=== PATIENT | female | born 1995 | race Hispanic/Latino ===

== ENCOUNTER 2023-09-20 11:48 | Emergency (ER) | payer SELFPAY ==
[2023-09-20 11:49] VITALS: BP 117/72; PULSE 95; RESP 17; TEMP 35.7; O2SAT 97; BMI 29.9
--- NOTE | 2023-09-20 13:32 | EDS_ITS ---
HPI HPI - Female History of Present Illness Chief Complaint: Narrative Narrative: 28-year-old female presenting with . She states her last menstrual period was August 13. She is having some abdominal cramping and some lower back pain. She states her urine has been more frequent. She feels emotional because she is and she is tearful. She does not have lateralizing abdominal pain. No vaginal bleeding or discharge. [place] and has been here for couple of years but she has no healthcare insurance nor does she have any physicians that she seen locally. She had 1 previous daughter who is now 4 years old. She does not have any diarrhea or constipation. PFSH PFSH Allergy/AdvReac Type Severity Reaction Status Date / Time No Known Allergies Allergy Verified 09/20/23 11:52 Social History Smoking Status: Never smoker ROS ROS ED Constitutional Constitutional ED: Denies chills, fever(s) or sweats Eyes Eyes: Denies blurry vision or change in vision ENT ENT ED: Denies ear pain or sore throat Cardiovascular Cardiovascular: Denies chest pain, palpitations or racing heartbeat Respiratory/Chest Respiratory/Chest: Denies cough, dyspnea or sputum Gastrointestinal Gastrointestinal: Reports abdominal pain and nausea; Denies constipation, diarrhea or vomiting Genitourinary Genitourinary ED: Denies dysuria, hematuria or urinary frequency Musculoskeletal Musculoskeletal: Denies arthralgias, myalgias or neck pain Integumentary Denies abscess, Abrasions or rash Neurologic Neurologic: Denies headache(s), paresthesias or weakness Psychiatric Psychiatric: Denies anxiety, depression, suicidal ideation or suicidal thoughts Endocrine Endocrinology: Denies polydipsia or polyuria EXAM Physical Exam Const Vital Signs: 09/20/23 11:49 09/20/23 13:48 Temperature 96.2 F L Temperature Source Temporal Pulse Rate 95 87 Respiratory Rate 17 16 Blood Pressure 117/72 117/64 Blood Pressure Mean 87 81 Pulse Ox 97 99 Oxygen Delivery Method Room Air Room Air Positive well nourished General Appearance ED: NAD HEENT Reports moist mucous membranes trauma Eyes PERRL and EOMs intact bilaterally Resp normal respiratory effort and clear to auscultation bilaterally GI normal to inspection, nondistended, normoactive bowel sounds, soft to palpation and non-distended Extremity normal to inspection Neuro oriented x3 and CN's II-XII intact bilaterally Sensorium / Orientation: alert Motor Exam: strength 5/5 throughout Psych mental status grossly normal Skin no rashes or lesions noted MDM MDM MDM Narrative Medical decision making narrative: Patient presenting with some mild crampy abdominal pain. She tested positive f or as outpatient. Last menstrual period August 13. Differential includes for semester , ectopic . hCG positive here today. Urinalysis negative for infection. hCG quant and obstetrics ultrasound will be obtained. Urinalysis negative for infection. hCG quant is 3410. Discussed the case with Dr. Huang. We will obtain an obstetrics ultrasound and Dr. Huang make arrangements for follow-up in the next 2 days. Patient will be signed out to incoming ED physician for monitoring until ultrasound can be obtained. Impression: 1. First trimester 2. Abdominal pain Lab Data Labs: Laboratory Results - last 24 hr 09/20/23 09/20/23 13:28 14:35 HCG, Quant 3410 H Urine Color Yellow Urine Clarity Clear Urine pH 6.0 Ur Specific [place] 1.020 Urine Protein Negative Urine Glucose (UA) Normal Urine Ketones 5 H Urine Occult Blood 10 H Urine Nitrite Negative Urine Bilirubin Negative Urine Urobilinogen Normal Ur Leukocyte Esterase Negative Urine RBC 0 SEEN Urine WBC 0 SEEN Ur Squamous Epith Cells 0-5 SEEN Urine Bacteria 0 SEEN Urine Mucus 0 SEEN Urine Test Positive H Discharge Plan Triage Chief Complaint: ED Provider: Oseas Palacios Dx/Rx/DC Orders Primary Care Provider: Care Physician,No Primary Referrals: NOT,DEFINED [Non-Staff] -
[2023-09-20 13:33] LABS: Bacteria 0 SEEN /hpf (None Seen); Mucous, Urine 0 SEEN /hpf (<or=2+); Red Blood Cells-Urine 0 SEEN /hpf (0-5); White Blood Cells 0 SEEN /hpf (0-5)
[2023-09-20 13:36] LABS: Color, Urine Yellow (Yellow); Glucose, Dipstick Normal (Normal); Ketone-Dipstick 5 mg/dl (Negative); Leukocyte Esterase-Dipstick Negative /ul (Negative); Nitrite-Dipstick Negative (Negative); Occult Blood-Urine 10 /ul (Negative); Protein-Dipstick Negative (Negative); Urine Bilirubin Dipstick Negative (Negative); Urine Clarity Clear (Clear); Urine Urobilinogen Normal (Normal)
[2023-09-20 13:46] LABS: Internal QC Validated? YES +Cl - CLEAR BKGD; Pregnancy, Urine Positive Negative; Squamous Epithelial Cells - UA 0-5 SEEN /hpf (5-10)
[2023-09-20 13:48] VITALS: BP 117/64; PULSE 87; RESP 16; O2SAT 99
--- NOTE | 2023-09-20 13:58 | US_ITS ---
EXAM: US , TRANSVAGINAL CLINICAL INDICATION: abdominal pain TECHNIQUE: Real-time transvaginal obstetrical ultrasound of the maternal pelvis and a first trimester with image documentation. Transvaginal imaging was used for better evaluation of the fetus and adnexa. COMPARISON: No relevant prior studies available. FINDINGS: GESTATION: There is a gestational sac with a mean sac diameter of 9 mm age 5 weeks 5 days. There is a 2 mm yolk sac present. There is no pole identified. PLACENTA/AMNIOTIC FLUID: There is a small hypoechoic area adjacent to the gestational sac that measures 9 x 4 x 7 mm which may represent a subchorionic hemorrhage. UTERUS/CERVIX: Uterus measures 8.9 x 4.4 x 5.1 cm. No myometrial mass. OVARIES: The right ovary measures 2.5 x 2.6 x 3.3 cm. There is a 1.9 x 2.3 x 1.5 cm anechoic structure in the ovary which may cysts. The left ovary measures 3.1 x 1.3 x 1.9 cm. No mass. FREE FLUID: There is a small amount of free fluid in the cul-de-sac. US/Transvaginal w/Preg US IMPRESSION: Gestational sac age 5 weeks 5 days. There is a yolk sac present but no evidence of a pole. There is a small hypoechoic area adjacent to the gestational sac which may represent a subchorionic hemorrhage. Electronically Signed: Gregory Lockhart MD at 16:34 EDT ,
[2023-09-20 15:19] LABS: hCG Titer Quant., Serum 3410 mIU/mL (1-3)
[2023-09-20 15:30] VITALS: BP 118/75; PULSE 89; RESP 16; O2SAT 99
[2023-09-20 17:01] VITALS: BP 120/74; PULSE 81; RESP 16; O2SAT 99
== END 2023-09-20 17:02 | disposition home or self-care (01) ==
PROVIDERS: Student in an Organized Health Care Education/Training Program; Emergency Provider Emergency Medicine; Visit Provider Emergency Medicine
DX: O26.891 Other specified pregnancy related conditions, first trimester (principal); R10.9 Unspecified abdominal pain; Z3A.00 Weeks of gestation of pregnancy not specified
CPT/HCPCS: 76817; 81001; 81025; 84702; 99282; A4216

== ENCOUNTER 2023-11-03 21:41 | Emergency (ER) | payer SELFPAY ==
[2023-11-03 21:41] VITALS: BP 108/80; PULSE 100; RESP 16; TEMP 36.6; O2SAT 99; BMI 32.2
[2023-11-03 21:58] LABS: Mucous, Urine 0 SEEN /hpf (<or=2+)
[2023-11-03 22:08] LABS: Color, Urine Yellow (Yellow); Glucose, Dipstick Normal (Normal); Ketone-Dipstick Negative (Negative); Leukocyte Esterase-Dipstick 25 /ul (Negative); Nitrite-Dipstick Negative (Negative); Occult Blood-Urine 250 /ul (Negative); Protein-Dipstick Negative (Negative); Urine Bilirubin Dipstick Negative (Negative); Urine Clarity Clear (Clear); Urine Urobilinogen Normal (Normal)
[2023-11-03 22:23] LABS: Bacteria 1+ /hpf (None Seen); Red Blood Cells-Urine 0-5 SEEN /hpf (0-5); Squamous Epithelial Cells - UA 0-5 SEEN /hpf (5-10); White Blood Cells 0-5 SEEN /hpf (0-5)
--- NOTE | 2023-11-03 22:47 | US_ITS ---
ACR Level 3 findings have been noted. An addendum which confirms receipt of the report will follow. EXAM: US , TRANSVAGINAL CLINICAL INDICATION: vaginal bleeding TECHNIQUE: Real-time transvaginal obstetrical ultrasound of the maternal pelvis and a first trimester with image documentation. Transvaginal imaging was used for better evaluation of the fetus and adnexa. COMPARISON: 09/20/2023 FINDINGS: GESTATION: Nonviable intrauterine gestation. [place]-rump length: 2.3 cm (8 weeks, 6 days). This is in contrast to age by dates of 11 weeks, 4 days. No cardiac activity is identified. PLACENTA/AMNIOTIC FLUID: Cannot be adequately evaluated due to the early gestational age. UTERUS/CERVIX: The cervix is closed. No myometrial mass. The uterus measures 11.0 x 6.7 x 5.9 cm. OVARIES: Likely right ovarian corpus luteum cyst for which no follow-up is indicated. No mass. The right ovary measures 2.9 x 2.6 x 1.9 cm. The left ovary measures 2.9 x 2.0 x 1.2 cm. FREE FLUID: No free fluid. US/Transvaginal w/Preg US IMPRESSION: Nonviable IUP. The gestation measures 8 weeks, 6 days in contrast to age by dates of 11 weeks, 4 days. No cardiac activity is identified. Follow-up as clinically indicated. Electronically Signed: Josh Lema DO at 23:45 EDT ,
[2023-11-03 23:41] VITALS: BP 110/49; PULSE 89; RESP 16; O2SAT 99
[2023-11-04 00:53] LABS: hCG Titer Quant., Serum 222 mIU/mL (1-3)
[2023-11-04 01:00] VITALS: BP 104/46; PULSE 87; RESP 15; O2SAT 100
--- NOTE | 2023-11-04 02:43 | ED.VIS.FEGU ---
HPI HPI - Female History of Present Illness Chief Complaint: Vag Bld, Preg Informant: patient Narrative Narrative: Patient is a female who states she is approximately 8 weeks . She reports that over the last 1 to 2 days she has noticed intermittent vaginal bleeding and back pain. She states has been no discharge she denies any dysuria or concern for STD. However because of the symptoms she is concerned there could be something wrong with her and therefore comes in for evaluation [facility] Medical History unable to obtain Allergy/AdvReac Type Severity Reaction Status Date / Time No Known Allergies Allergy Verified 09/20/23 11:52 Social History Smoking Status: Never smoker ROS ROS ED Constitutional Constitutional ED: Denies chills or fever(s) Eyes Eyes: Denies change in vision or diplopia ENT ENT ED: Denies sore throat Cardiovascular Cardiovascular: Denies chest pain, palpitations or racing heartbeat Respiratory/Chest Respiratory/Chest: Denies cough or dyspnea Gastrointestinal Gastrointestinal: Denies abdominal pain, diarrhea, nausea or vomiting Genitourinary Genitourinary ED: Reports other Details: Positive vaginal bleeding ; Denies dysuria Musculoskeletal Musculoskeletal: Reports other Details: Positive back pain ; Denies myalgias Integumentary Denies rash Neurologic Neurologic: Denies headache(s) Hematologic/Lymphatic Hematologic/Lymphatic: Denies easy bleeding or easy bruising EXAM Physical Exam Const Vital Signs: 11/03/23 23:41 11/04/23 01:00 11/04/23 02:52 Temperature 98.1 F Pulse Rate 89 87 78 Respiratory Rate 16 15 16 Blood Pressure 110/49 L 104/46 L 105/62 Blood Pressure Mean 69 65 76 Pulse Ox 99 100 97 Oxygen Delivery Method Room Air Room Air Positive well nourished and well developed General Appearance ED: well developed; Negative for pallor HEENT HEENT Narrative: Normocephalic atraumatic Eyes PERRL and EOMs intact bilaterally General Eye ED: Negative for pale conjunctiva or scleral icterus Neck supple Resp normal respiratory effort and clear to auscultation bilaterally Cardio regular rate and regular rhythm Rate: other Other Details: Heart is regular rate and rhythm without murmurs rubs or gallops. Radial and carotid pulses are equal and symmetric GI normal to inspection, nondistended, normoactive bowel sounds, soft to palpation, non-tender, non-distended and no masses GI Narrative: No voluntary guarding or rigidity or pulsatile mass or fluid wave Auscultation: normoactive bowel sounds Palpation: soft Narrative: Patient deferred Back/Spine no CVA tenderness Extremity normal to inspection and full ROM Extremity Narrative: No asymmetric edema no pitting edema negative Homans' sign bilaterally Neuro oriented x3, CN's II-XII intact bilaterally and no sensory deficits noted Sensorium / Orientation: alert Motor Exam: strength 5/5 throughout Psych mental status grossly normal Skin no rashes or lesions noted and no wounds General Skin Exam: Negative for jaundice or pallor MDM MDM MDM Narrative Medical decision making narrative: Patient arrived to the ER with stable vitals and a soft nonsurgical abdomen. With her report of vaginal bleeding there is concern for subchorionic hemorrhage versus threatened miscarriage versus spontaneous and therefore a transvaginal ultrasound was obtained. Transvaginal ultrasound indicated no heartbeat and states this is consistent with a spontaneous miscarriage. Patient's labs show that her hCG value has decreased from 3400 in September down to approximately 220 today which correlates with this finding. Her blood type is O+ and therefore there is no need for RhoGAM injection. At this time vitals are stable she does not have a surgical abdomen and there is no need for emergent OB consultation. However the patient does need to follow-up with them as she may require D&C. As vitals are stable and there is no obvious signs of acute blood loss anemia I do not feel there is need for further workup and patient is otherwise safe for discharge History & Record Review Discussion w/independent historian: Patient Lab Data Attestation: I reviewed the patient's lab results. Labs: Laboratory Results - last 24 hr 11/04/23 00:17 HCG, Quant 222 H Blood Type O POSITIVE Radiography Diagnostic Testing: Clinical Impression(s) from Imaging Studies Obstetrics Ultrasound 11/03/23 22:47 IMPRESSION: Nonviable IUP. The gestation measures 8 weeks, 6 days in contrast to age by dates of 11 weeks, 4 days. No cardiac activity is identified. Follow-up as clinically indicated. Electronically Signed: Josh Lema DO at 23:45 EDT , ADDENDUM: 11/04/23 0006 IMPRESSION: Nonviable IUP. The gestation measures 8 weeks, 6 days in contrast to age by dates of 11 weeks, 4 days. No cardiac activity is identified. Follow-up as clinically indicated. N.B. : Addis Hernandez RN, confirmed on 11/03/2023 23:59:32 (ET) that the healthcare facility has received the radiology report. Electronically Signed: Josh Lema DO at 23:45 EDT , Discharge Plan Triage Chief Complaint: Vag Bld, Preg ED Provider: Perry Mendoza Dx/Rx/DC Orders Clinical Impression: Spontaneous miscarriage Instructions: ED Miscarriage Spontaneous Primary Care Provider: Care Physician,No Primary Referrals: Guillermina Espinoza DO [Med Staff - Active Staff] - Care Physician,No Primary [Primary Care Provider] - Activity Restrictions/Additional Instructions: Your blood work and ultrasound show you are having a spontaneous miscarriage. You need to follow-up with [facility] for repeat evaluation as you may need a D&C. If you develop increased pain severe bleeding or temperature over 100.4 or have any further concerns please return the hospital for repeat evaluation Print Language: Lithuanian Disposition Disposition: Home, Self Care Discharge Date/Time: 11/04/23 02:53
[2023-11-04 02:52] VITALS: BP 105/62; PULSE 78; RESP 16; TEMP 36.7; O2SAT 97
== END 2023-11-04 02:53 | disposition home or self-care (01) ==
PROVIDERS: Emergency Provider Emergency Medicine; Visit Provider Emergency Medicine
DX: O03.9 Complete or unspecified spontaneous abortion without complication (principal)
CPT/HCPCS: 76817; 81001; 84702; 86900; 86901; 99283; A4216

== ENCOUNTER 2023-11-05 04:53 | Day surgery (SDC) | payer SELFPAY ==
[2023-11-05] VITALS (13 sets, daily range): BP systolic 102–137; BP diastolic 48–92; PULSE 61–96; RESP 14–17; TEMP 36.1–36.7; O2SAT 95–99; BMI 28.9
--- NOTE | 2023-11-05 | POC_PTH ---
PATIENT: MELODIE CARLSON [place] [facility] [id number] AGE/SX: 28/F ROOM: RE11/05/[address]: Dr. Guillermina Espinoza DO : 1995 BED: DIS: 11/05/2023 SPEC #: [id number] RECD: 11/05/23 12:13 STATUS: DELLA MAYE #: [id number] EUNICE: 11/05/23 00:[address]: Guillermina Espinoza DEPT: SURGICAL PATHOLOGY RECD BY: Michael Vann ENTERED: 11/05/23 12:13 SP TYPE: PROD CONC OTHR DR: No Primary Care Phys Tissues: Product of conception, NOS Procedures: Surgery Specimen Level IV HEADER OPERATION: D&C, suction PRE-OP DIAGNOSIS: Spontaneous misscarriage TISSUE SUBMITTED: Products of conception MICROSCOPIC DIAGNOSIS Products of conception, suction dilatation and curettage: [place], gestational endometrium, and immature chorionic villi (products of conception), clinically spontaneous miscarriage. SJ: 11/08/2023 MICROSCOPIC DESCRIPTION Slides are reviewed. GROSS DESCRIPTION Received in fixative is one container labeled with the patient's name and designated Products of conception. The specimen consists of multiple irregular fragments of red-wild soft tissue measuring in aggregate 6.0 x 3.5 x 0.2cm. parts are not grossly recognized. The specimen is submitted in its entirety in three cassettes. AM/ 11/05/2023 TC:5 CPT:62836
[2023-11-05 05:43] LABS: Bacteria 0 SEEN /hpf (None Seen); Mucous, Urine 0 SEEN /hpf (<or=2+); Squamous Epithelial Cells - UA 0 SEEN /hpf (5-10); White Blood Cells 0 SEEN /hpf (0-5)
[2023-11-05 05:51] LABS: Color, Urine Yellow (Yellow); Glucose, Dipstick Normal (Normal); Ketone-Dipstick Negative (Negative); Leukocyte Esterase-Dipstick Negative /ul (Negative); Nitrite-Dipstick Negative (Negative); Occult Blood-Urine 250 /ul (Negative); Protein-Dipstick Negative (Negative); Urine Bilirubin Dipstick Negative (Negative); Urine Clarity Clear (Clear); Urine Urobilinogen Normal (Normal)
[2023-11-05 06:01] LABS: Red Blood Cells-Urine 10-25 SEEN /hpf (0-5)
[2023-11-05 06:14] LABS: Absolute Lymphocyte Count 3.18 X10^3/uL (0.83-4.51); Absolute Neutrophil Count 5.7 X10^3/uL (2.0-7.7); Basophil# 0.04 X10^3/uL; Basophil% 0.4 % (0-1); Eosinophil# 0.22 X10^3/uL; Eosinophils% 2.2 % (0-5); Hematocrit 36.6 % (37-47); Hemoglobin 12.1 g/dL (12.0-15.0); Lymphocyte # 3.18 X10^3/ul (0.83-4.51); Lymphocyte % 32.1 % (19-41); Mean Corp Hgb Conc 33.1 g/dL (32-36); Mean Corpuscular Hgb 32.3 pg (27.0-32.0); Mean Corpuscular Volume 97.6 fL (81-99); Mean Platelet Vol. 10.1 fl (6.2-12.0); Monocyte% 7.1 % (0-10); NRBC Flagged by Analyzer 0 % (0-5); Neutrophil # 5.72 X10^3/uL (2.7-7.7); Neutrophil % 57.7 % (47-70); Platelet Count 261 K/mm3 (150-450); RBC Distribution Width CV 12.1 % (11.6-14.6); RBC Distribution Width SD 43.6 fl (35.1-43.9); Red Blood Count 3.75 M/mm3 (4.2-5.4); White Blood Count 9.9 K/mm3 (4.4-11.0)
[2023-11-05] MEDS: Ondansetron 4 MG/2 ML Vial IV (06:14)
[2023-11-05] MEDS: 0.9% Normal Saline (1000mL) 1,000 ML 999 ML IV (06:14)
[2023-11-05] MEDS: Morphine 4 MG/ML Syringe IV (06:14)
[2023-11-05 06:27] LABS: Anion Gap 9 (5-15); BUN 11 mg/dL (7-18); BUN/Creat Ratio 18.9 RATIO (10-20); Calcium,Total 8.8 mg/dL (8.5-10.1); Chloride 107 mmol/L (98-107); Creatinine, Serum 0.58 mg/dL (0.55-1.02); EST Glomerular Filtration Rate 130 mL/min (>60); Est Glom Filt Rate - Afr Amer 157 mL/min (>60); Estimated Creatinine Clearance 137.91 ml/min; Glucose 127 mg/dL (74-106); Potassium 3.6 mmol/L (3.5-5.1); Sodium Level 139 mmol/L (136-145)
[2023-11-05 06:28] LABS: International Normalized Ratio 1.1; Prothrombin Time (Protime)PT. 13.9 SECONDS (11.7-14.9)
[2023-11-05 06:29] LABS: Partial Thromboplast Time 28.2 Seconds (24.1-36.2)
[2023-11-05 06:41] LABS: Lactic Acid 1.8 mmol/L (0.4-1.9)
--- NOTE | 2023-11-05 07:13 | EDS_ITS ---
HPI History of Present Illness Chief Complaint: Complaint Informant: patient Narrative Narrative: Patient is a 28-year-old female who is a G3, P1. She was seen roughly 24 hours ago secondary to vaginal bleeding and pain and ultrasound and lab work confirms she was having a spontaneous . Patient does state that with her first child she had a similar event and needed surgery. She states that there is no issues with the second child. She states that after leaving the ER she contacted [facility] and was scheduled for an appointment later today. However she developed increasing abdominal pain and increased vaginal bleeding and secondary to this comes to the hospital for evaluation. Patient denies any history of bleeding disorder or blood thinner use PFSH PFSH Home Medications ?Medication ?Instructions ?Recorded ?Last Taken ?Type vit no.95-ferrous 1 tab PO DAILY 11/05/23 Unknown History fumarate 28 mg-folic acid 800 mcg tablet () Allergy/AdvReac Type Severity Reaction Status Date / Time No Known Allergies Allergy Verified 09/20/23 11:52 Social History Smoking Status: Never smoker ROS ROS ED Constitutional Constitutional ED: Denies chills or fever(s) Eyes Eyes: Denies blurry vision or change in vision ENT ENT ED: Denies sore throat Cardiovascular Cardiovascular: Denies chest pain, palpitations or racing heartbeat Respiratory/Chest Respiratory/Chest: Denies cough or dyspnea Gastrointestinal Gastrointestinal: Reports abdominal pain; Denies diarrhea, nausea or vomiting Genitourinary Genitourinary ED: Reports other Details: Positive vaginal bleeding ; Denies dysuria Musculoskeletal Musculoskeletal: Denies back pain or myalgias Integumentary Denies rash Neurologic Neurologic: Denies headache(s) or weakness Hematologic/Lymphatic Hematologic/Lymphatic: Denies easy bleeding or easy bruising EXAM Physical Exam Const Vital Signs: 11/05/23 04:54 11/05/23 04:59 11/05/23 05:59 Temperature 97.1 F L 97.1 F L 98.1 F Temperature Source Temporal Temporal Temporal Pulse Rate 96 96 82 Respiratory Rate 17 17 17 Blood Pressure 119/48 L 119/48 L 137/92 H Blood Pressure Mean 71 71 107 Blood Pressure Source Pulse Ox 99 99 99 Oxygen Delivery Method Room Air Room Air Room Air 11/05/23 07:06 11/05/23 07:16 Temperature 97.7 F L Temperature Source Temporal Pulse Rate 71 61 Respiratory Rate 14 14 Blood Pressure 117/60 121/58 H Blood Pressure Mean 79 79 Blood Pressure Source Monitor Pulse Ox 97 97 Oxygen Delivery Method Room Air Room Air Positive well nourished, well developed and obese General Appearance ED: well developed; Negative for pallor Nutritional Appearance: obese HEENT HEENT Narrative: Normocephalic atraumatic Eyes PERRL and EOMs intact bilaterally General Eye ED: Negative for pale conjunctiva or scleral icterus Neck supple Resp normal respiratory effort and clear to auscultation bilaterally Resp Narrative: No nasal flaring retractions tachypnea or accessory muscle use Cardio regular rate and regular rhythm Rate: other Other Details: Heart is regular rate and rhythm without murmurs rubs or gallops Radial and carotid pulses are equal and symmetric GI non-distended and no masses GI Narrative: Abdomen is soft and nondistended with normal active bowel sounds. Patient has pain with palpation of the lower abdomen diffusely without voluntary guarding or rigidity Auscultation: normoactive bowel sounds Palpation: soft Narrative: There is mild ooze of blood from the vaginal os and speculum exam shows bright red blood that fills the vaginal os upon insertion of the speculum Back/Spine no CVA tenderness Extremity normal to inspection Neuro oriented x3, CN's II-XII intact bilaterally and no sensory deficits noted Sensorium / Orientation: alert Motor Exam: strength 5/5 throughout Psych mental status grossly normal Skin no rashes or lesions noted, no wounds and skin turgor normal General Skin Exam: Negative for jaundice or pallor MDM MDM MDM Narrative Medical decision making narrative: Patient arrived to the ER with stable vitals but reported increased bleeding abdominal pain and had a known spontaneous just roughly 24 hours ago. There is concern that patient will need a D&C secondary to her symptoms and t here is also possibility that she has now acute blood loss anemia. Basic blood work was obtained which showed a stable H&H as well as no electrolyte abnormality and no signs of UTI. She has not required a blood transfusion at this time there are no overt signs of infection but with increased bleeding and pain [facility] was contacted. They evaluated the patient ER and do recommend admission to their service for further care History & Record Review Discussion w/independent historian: Patient Lab Data Attestation: I reviewed the patient's lab results. Labs: Laboratory Results - last 24 hr 06/21/24 06/21/24 05:38 06:02 WBC 9.9 RBC 3.75 L Hgb 12.1 Hct 36.6 L MCV 97.6 MCH 32.3 H MCHC 33.1 RDW Std Deviation 43.6 RDW Coeff of Esteban 12.1 Plt Count 261 MPV 10.1 Immature Gran % (Auto) 0.500 Neut % (Auto) 57.7 Lymph % (Auto) 32.1 [place] % (Auto) 7.1 Eos % (Auto) 2.2 Baso % (Auto) 0.4 Absolute Neuts (auto) 5.7 Absolute Lymphs (auto) 3.18 Nucleated RBC % 0 PT 13.9 INR 1.1 APTT 28.2 Sodium 139 Potassium 3.6 Chloride 107 Carbon Dioxide 23.0 Anion Gap 9 BUN 11 Creatinine 0.58 Estim Creat Clear Calc 137.91 Est GFR (MDRD) Af Amer 157 Est GFR (MDRD) Non-Af 130 BUN/Creatinine Ratio 18.9 Glucose 127 H Lactic Acid 1.8 Calcium 8.8 Urine Color Yellow Urine Clarity Clear Urine pH 6.0 Ur Specific [place] 1.010 Urine Protein Negative Urine Glucose (UA) Normal Urine Ketones Negative Urine Occult Blood 250 H Urine Nitrite Negative Urine Bilirubin Negative Urine Urobilinogen Normal Ur Leukocyte Esterase Negative Urine RBC 10-25 SEEN Urine WBC 0 SEEN Ur Squamous Epith Cells 0 SEEN Urine Bacteria 0 SEEN Urine Mucus 0 SEEN Management Discussion w/another healthcare provider: Annual [employer] Discharge Plan Dx/Rx/DC Orders Clinical Impression: Spontaneous miscarriage Disposition Disposition: Acute Care Hospital [facility]
--- NOTE | 2023-11-05 08:08 | PCM.HP.OB ---
HPI - General General Date of Admission: 11/05/23 HPI Narrative MELODIE KRISHNA, is a 28 y/o at about 6 weeks gestation who presents to the [facility] ER with heavy vaginal bleeding. Initially she information that she gave the ER doc is that she was to see me today at 10 am. However upon further discussion, she is actually a patient of [facility] but now requests me to take care of her after doing an exam and counseling her. She states that she is not completely sure how many miscarriages she has had but she had one section and her daughter is 4 years old. [facility] Home Medications ?Medication ?Instructions ?Recorded ?Last Taken ?Type vit no.95-ferrous 1 tab PO DAILY 11/05/23 Unknown History fumarate 28 mg-folic acid 800 mcg tablet () Allergy/AdvReac Type Severity Reaction Status Date / Time No Known Allergies Allergy Verified 09/20/23 11:52 Social History Smoking Status: Never smoker ROS Constitutional Constitutional: Denies change in weight, fatigue, fever(s), headache(s), poor appetite or weakness Eyes Eyes: Denies blurry vision, change in vision, seeing flashes or spots in vision ENT HEENT: Denies dizziness, headache(s), loss taste/smell or sore throat Cardiovascular Cardiovascular: Denies chest pain, dizziness, dyspnea, irregular heart rhythm, leg edema, palpitations, rapid heart rate or vomiting Respiratory/Chest Respiratory/Chest: Denies chest tightness, cough or dyspnea Gastrointestinal Gastrointestinal: Denies abdominal pain, anorexia, cramping, diarrhea, hemorrhoids or vomiting Genitourinary Genitourinary: Denies dysuria, flank pain, genital lesions, genital pain, urinary frequency or urinary urgency Musculoskeletal Musculoskeletal: Denies back pain, difficulty walking, joint pain, limited range of motion, muscle cramps or numbness Integumentary Integumentary: Denies lesions or unusual bruising Neurologic Neurologic: Denies abnormal movements, abnormal speech, dizziness, numbness, seizure-like activity or syncope Psychiatric Psychiatric: Denies anxiety, behavioral changes, change in appetite, change in libido, cognitive impairment, confusion, depression, difficulty concentrating, hallucinations or suicidal thoughts Endocrine Endocrinology: Denies excessive sweating, polydipsia or polyuria Hematologic/Lymphatic Hematologic/Lymphatic: Denies easy bleeding, easy bruising or lymphadenopathy Allergic/Immunologic Allergic/Immunologic: Denies itchy eyes, lip swelling, seasonal rhinorrhea, rhinitis, throat swelling, tongue swelling, eczemia, wheezing or asthma Vital Signs Vital Signs Vital Signs: 11/05/23 04:54 11/05/23 04:59 11/05/23 05:59 Temperature 97.1 F L 97.1 F L 98.1 F Temperature Source Temporal Temporal Temporal Pulse Rate 96 96 82 Respiratory Rate 17 17 17 Blood Pressure 119/48 L 119/48 L 137/92 H Blood Pressure Mean 71 71 107 Blood Pressure Source Pulse Ox 99 99 99 Oxygen Delivery Method Room Air Room Air Room Air 11/05/23 07:06 11/05/23 07:16 Temperature 97.7 F L Temperature Source Temporal Pulse Rate 71 61 Respiratory Rate 14 14 Blood Pressure 117/60 121/58 H Blood Pressure Mean 79 79 Blood Pressure Source Monitor Pulse Ox 97 97 Oxygen Delivery Method Room Air Room Air Weight Weight: 163 lb 2.273 oz Body Mass Index (BMI) 28.9 Physical Exam Const alert, oriented x3, no apparent distress and healthy appearing General Appearance: cooperative; Negative for anxious HEENT normocephalic Face and Sinus: normal facial exam Eyes EOMs intact bilaterally and no scleral icterus General Eye: normal appearance of both eyes Neck full ROM and supple Lymph Lymphatic: no lymphadenopathy noted Chest Chest: abnormal inspection of the chest Resp normal respiratory effort Effort and Inspection: able to speak in complete sentences Cardio regular rate GI soft to palpation and non-tender Palpation: soft; Negative for tender external exam normal Manual OB Exam: other upon exam there is a gestational sac that was removed with a ringed forceps device. once this was removed rapid bleeding started from the cervix. bedside ultrasound shows a 1.9 cm lining still. Back/Spine no CVA tenderness Extremity normal to inspection, full ROM and no clubbing, cyanosis or edema General Extremity: Negative for calf tenderness or edema Skin Lesions: no lesions Rashes: no rashes Psych mental status grossly normal Labs Labs Labs: Blood Type O POSITIVE Hct 36.6 % (37-47) L Hgb 12.1 g/dL (12.0-15.0) Obstetrics Ultrasound Assessment & Plan (1) Spontaneous miscarriage: PLAN: heavy vaginal bleeding in need for a suction D&C urgently. After discussing the patient's diagnosis and treatment plan options, patient wishes to proceed with surgical management. I have discussed with the patient the risks, benefits, and alternatives of the procedure which include but are not limited to risks of anesthesia, bleeding, infection, possible damage to bowel, bladder, or surrounding vasculature which could lead to additional surgery to evaluate any complications. Patient agrees to procedure and wishes to proceed. ACOG/uptodate references given for additional information regarding procedure. the use of PrestoBox device was used for this consultation
--- NOTE | 2023-11-05 08:18 | ED.RN ---
report given to malathi in surgery.
--- NOTE | 2023-11-05 08:42 | PRE.ANES_ITS ---
ASA Classification* ASA Classification ASA Classification: 2 and E Assessment & Plan Anesthesia* Anesthesia Assessment Anesthesia Assessment: Discussed sedation and/or anesthesia options, risks, benefits, and alternatives with patient/parents/legal guardian/POA. Questions invited. The patient/parents/legal guardian/POA seems to understand and agrees to proceed with anesthesia plan. Reviewed the physical assessment, medical history, allergy history and patient home medications list prior to surgery/procedure/anesthetic and documented any changes. Performed airway and anesthesia risk assessments. 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 When Was Last Pacemaker Check QUESTION #4 FULL TEXT: You/Your Family Experience fever (hyperthermia) with Anesthesia Last Oral Intake Last Oral intake: Last Oral Intake NPO since 18:00 11/05/23 07:16 Meds taken in AM with sips of water? 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 Female HX of Motion Sickness HX of N/V After Surgery Non-Smoker Duration of Surgery greater than 60 minutes Number of Risk Factors PONV Score Height & Weight Height & Weight: Anesthesia: Height & Weight Height 5 ft 3 in 11/05/23 07:16 Weight: 74 kg 11/05/23 07:16 Body Mass Index (BMI) 28.9 11/05/23 07:16 Respiratory Assessment Respiratory Assessment - rework machine operator: Respiratory Tract Infection Hx - rework machine operator Hx Respiratory Tract Infection STOP Sleep Apnea STOP Sleep Apnea - rework machine operator: STOP Sleep Apnea - rework machine operator Hx Hypertension No 11/05/23 07:16 Hx Sleep Apnea No 11/05/23 07:16 CPAP BIPAP Do you snore loudly (louder No 11/05/23 07:16 than talking or can be heard Do you often feel tired/ No 11/05/23 07:16 fatigued/ sleepy during daytime? Has anyone observed you stop No 11/05/23 07:16 breathing during sleep? STOP Results Negative 11/05/23 07:16 QUESTION #5 FULL TEXT : Do you snore loudly (louder than talking or can be heard through closed doors)? 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 Specify any problems Hx of Preganancy in last 3 Months Nurse Filling Out Transfusion & Questions: Date: Time: Patient unable to answer at this time (ie. confused, unrespo /Reproduction History /Reproductive History - rework machine operator: /Reproductive Hx- rework machine operator Hx Now Yes: miscarriage 11/05/23 07:16 Gestational Age (in weeks): EDC: Hx Hx Para Hx Section SAB No 11/05/23 04:54 Active Medications Active Medications: Current Medications Generic Name Dose Route Start Last Admin Trade Name Freq PRN Reason Stop Dose Admin Lactated Ringer's 1,000 mls @ 15 mls/hr 11/05/23 08:30 IV .Q48H MARY JANE Anesthesia Focused Assessment* Temperature: 97 F Pulse Rate: 71 Blood Pressure: 122/63 Respiratory Rate: 14 Pulse Ox: 98 Airway Assessment Mouth opens: >3 cm Mallampati Score: II Focused Labs Anesthesia Preop lab: CBC WBC 9.9 K/mm3 (4.4-11.0) 11/05/23 06:02 RBC 3.75 M/mm3 (4.2-5.4) L 11/05/23 06:02 Hgb 12.1 g/dL (12.0-15.0) 11/05/23 06:02 Hct 36.6 % (37-47) L 11/05/23 06:02 Plt Count 261 K/mm3 (150-450) 11/05/23 06:02 CHEMISTRY Potassium 3.6 mmol/L (3.5-5.1) 11/05/23 06:02 Sodium 139 mmol/L (136-145) 11/05/23 06:02 BUN 11 mg/dL (7-18) 11/05/23 06:02 Creatinine 0.58 mg/dL (0.55-1.02) 11/05/23 06:02 Glucose 127 mg/dL (74-106) H 11/05/23 06:02 COAG PT 13.9 SECONDS (11.7-14.9) 11/05/23 06:02 HCG, Quant 222 mIU/mL (1-3) H 11/04/23 00:17 Urine Test Positive Negative H 09/20/23 13:28 Review of Systems (Anesthesia) ROS Narrative System reviewed and no additional complaints, except as documented. PFSH Home Medications ?Medication ?Instructions ?Recorded ?Last Taken ?Type vit no.95-ferrous 1 tab PO DAILY 11/05/23 Unknown History fumarate 28 mg-folic acid 800 mcg tablet () Allergy/AdvReac Type Severity Reaction Status Date / Time No Known Allergies Allergy Verified 09/20/23 11:52 Social History Smoking Status: Never smoker
[2023-11-05] MEDS: Lidocaine 1% (20 ml mdv) 20 ML Vial (09:42)
--- NOTE | 2023-11-05 09:45 | PCM.OP.BLANK ---
Problems Associated Problem List Diagnoses (1) Incomplete : Operative Report Date of Procedure: 11/05/23 Preoperative diagnosis: 6 to 7 weeks missed , heavy vaginal bleeding Postoperative diagnosis: 6 to 7 weeks missed , heavy vaginal bleeding Surgery: Suction dilation and curettage Surgeon: Dr. Guillermina Espinoza, DO Urine output: 100cc Fluids: 600cc Estimated blood loss: 30 cc Details of the proceudre The patient was taken to the operating room and placed under MAC local anesthesia. She was prepped and draped in the normal sterile fashion the dorsal lithotomy position. Bladder was drained of clear urine and anterior lip of the cervix was grasped and the uterus sounded to 10cm. Cervix was progressively dilated to allow passage of a 8 mm suction curette. Progressive passes were made removing the retained products of conception without complication. Sharp curettage confirmed complete removal of the retained products. All instruments were removed from the vagina and excellent hemostasis was noted and the patient was taken to recovery in stable condition. Multi Select Codes Urinary/Genital Urinary/Genital CPT Codes: 98856 Surg Trtmt missed Ab 1TM
--- NOTE | 2023-11-05 09:48 | POC_PTH ---
PATIENT: MELODIE CARLSON LOC: [facility] U#:[id number] AGE/SX: 28/F ROOM: RE11/05/[address]: Dr. Guillermina Espinoza DO : 1995 BED: DIS: 11/05/2023 SPEC #: [id number] RECD: 11/05/23 10:48 STATUS: DELLA VILLAVICENCIO #: [id number] EUNICE: 11/05/23 09:[address]: Guillermina Espinoza DEPT: SURGICAL PATHOLOGY RECD BY: Lili Frost ENTERED: 11/05/23 10:54 SP TYPE: PROD CONC OTHR DR: No Primary Care Phys Tissues: Product of conception, NOS Procedures: Surgery Specimen Level IV HEADER OPERATION: D&C, suction PRE-OP DIAGNOSIS: Spontaneous miscarriage TISSUE SUBMITTED: Products of conception MICROSCOPIC DIAGNOSIS Products of conception, suction dilatation and curettage: Decidua and immature chorionic villi (products of conception), clinically spontaneous miscarriage. SJ: 11/07 MICROSCOPIC DESCRIPTION Slides are reviewed. GROSS DESCRIPTION Received is one container labeled with the patient's name and not further designated. The specimen consists of multiple irregular and hemorrhagic fragments of red-wild soft tissue measuring in aggregate 7.0 x 4.5 x 1.0cm. parts are not grossly recognized. Dust Box Tender tissue is submitted in one cassette. AM/ 11/05/2023 TC:5 CPT:68954
--- NOTE | 2023-11-05 09:58 | PCM.DC ---
Discharge Instructions Diet Discharge Diet: No restrictions Activity Discharge Activity: Return to Normal Activity, May Shower and May Take a Tub Bath (after 1 week) May resume sexual activity in: 1-2 weeks Weight Bearing Status: Weight bearing as tolerated Lifting Restrictions: none Dressing / Incision Call your doctor if you observe: Fever of 101 or Higher, Using more than 1 pad per hour, Shortness of breath and Uncontrolled pain Follow Up Care Please Follow Up With: Guillermina Espinoza DO When: Call [phone] to schedule appointment. Test Results: Test results from this visit will be discussed in further detail at your follow-up appointment, if applicable. Discharge Plan Admission Primary Reason for Your Visit: suction dilation and curettage Attending Provider: Guillermina Espinoza Primary Care Provider: Leann Ng Primary Instructions Patient Instructions: Dilation and Curettage Print Language: Kiswahili Discharge Orders/Prescriptions Prescriptions: New hydrocodone-acetaminophen 5-325 mg tablet 1 tab PO Q4H PRN (Reason: pain) 3 Days Qty: 10 0RF No Action PNV cmb#95-ferrous fumarate-FA [] 28 mg iron- 800 mcg tablet 1 tab PO DAILY Referrals / Follow Up: Care Physician,No Primary [Primary Care Provider] - Disposition Disposition (needs filled in before D/C Order can be placed): Home, Self Care
--- NOTE | 2023-11-05 10:05 | PCM.POST.ANE ---
Anesthesia: Postop Eval I Current Vital Signs Temperature: 97.7 F Pulse Rate: 95 Blood Pressure: 114/83 Respiratory Rate: 16 Pulse Ox: 96 Oxygen Delivery Method: Room Air Assessment Airway patent: Yes Spontaneous unlabored respirations: Yes Mental status: Awake and Calm nausea: No Vomiting: No Anesthesia Complication: No Fluid Hydration Crystalloid volume administer (ml): 600 Total IV fluid infused: 600 Progress Note Anesthesia document: Postop Eval 1 completed: Yes
--- NOTE | 2023-11-05 15:11 | PCM.POSTANE2 ---
Anesthesia Postop Eval I Sum Postop Eval Completion status Anesthesia document: Postop Eval 1 completed: Yes Anesthesia Postop Eval I Summary Anesthesia Postop Eval I Summary: Anesthesia Postop Eval I: Assessment Summary Airway patent Yes 11/05/23 10:07 Spontaneous unlabored Yes 11/05/23 10:07 respirations Mental status Awake,Calm 11/05/23 10:07 nausea No 11/05/23 10:07 Vomiting No 11/05/23 10:07 Anesthesia Postop Eval I: Fluid Summary Crystalloid volume administer 600 11/05/23 10:07 (ml) Colloids volume administered ( ml) Blood Product volume administered (ml) Total IV fluid infused 600 11/05/23 10:07 Anesthesia Postop Eval I: Summary Notes Anesthesia Complication No 11/05/23 10:07 Anesthesia Complication Comment: Post-operative progress note Anesthesia: Postop Eval II Evaluation Mental status: Awake and Calm Pain Level: 0 nausea: No Vomiting: No Complications Anesthesia Complication: No
[2023-11-08 14:06] LABS: Pathology Specimen OB SEE PATHOLOGY REPORT
== END 2023-11-05 11:35 | disposition home or self-care (01) ==
LOC: ED 07:19 → SDC 07:31 → ACINP 07:32
PROVIDERS: Emergency Medicine; Emergency Provider Emergency Medicine; Visit Provider Obstetrics & Gynecology
PROC: (CPT 59812; principal; 2023-11-05 08:45)
DX: O03.4 Incomplete spontaneous abortion without complication (principal); Z3A.01 Less than 8 weeks gestation of pregnancy; O99.210 Obesity complicating pregnancy, unspecified trimester; E66.9 Obesity, unspecified; O02.1 Missed abortion
CPT/HCPCS: 59812; 01965; 80048; 81001; 83605; 85025; 85610; 85730; 88305; 99282; J7030; A4216; J2405

== ENCOUNTER → 2023-11-17 | Outpatient (CLI) | payer BC, SELFPAY ==
[2023-11-17 13:45] LABS: hCG Titer Quant., Serum 4 mIU/mL (1-3)
== END | disposition home or self-care (01) ==
LOC: LAB 12:18
PROVIDERS: Referring Provider Nurse Practitioner Women's Health; Visit Provider Nurse Practitioner Women's Health
DX: O03.4 Incomplete spontaneous abortion without complication (principal)
CPT/HCPCS: 36415; 84702

== ENCOUNTER → 2023-11-24 | Outpatient (CLI) | payer BC, SELFPAY ==
[2023-11-24 12:55] LABS: hCG Titer Quant., Serum < 1 mIU/mL (1-3)
== END | disposition home or self-care (01) ==
PROVIDERS: Visit Provider Nurse Practitioner Women's Health
DX: O03.9 Complete or unspecified spontaneous abortion without complication (principal)
CPT/HCPCS: 36415; 84702